=== PATIENT | female | born 1935 | race Native Hawaiian/Other Pacific Islander ===

== ENCOUNTER 2017-05-31 07:00 | Day surgery (SDC) | payer MEDICARE, OTHER ==
[2017-05-31] MEDS ORDERED: PROPARACAINE 0.5% OPHTH SOL 15 ML BTTL ONE (10:23)
[2017-05-31] MEDS ORDERED: TROP 1%/CYCLOPEN 1%/PHENYL 2% DROPS ONE (10:23)
[2017-05-31] MEDS ORDERED: PROPARACAINE 0.5% OPHTH SOL 15 ML BTTL LEFT_EYE ONE ×2 (10:57→11:18)
[2017-05-31] MEDS ORDERED: TROP 1%/CYCLOPEN 1%/PHENYL 2% DROPS OPHTH ONE (10:57)
[2017-05-31] MEDS ORDERED: TOBRAMYCIN SULF 0.3 % OPHT SOL 1 DROP LEFT_EYE ONE (10:57)
[2017-05-31] MEDS ORDERED: MIDAZOLAM INJ 2 MG/2 ML VIAL ONE (11:25)
[2017-05-31] MEDS ORDERED: LIDOCAINE 1% PF 2 ML AMP INJ ONE (11:43)
[2017-05-31] MEDS ORDERED: GENTAMICIN 0.3% OPHTH SOL 1 DROP LEFT_EYE ONE (11:44)
[2017-05-31] MEDS ORDERED: DEXAMETHASONE 0.1% OPHTH SOL 1 DROP LEFT_EYE ONE (11:44)
[2017-05-31] MEDS ORDERED: BRIMONIDINE 0.2% OPHTH DROPS LEFT_EYE ONE (11:45)
[2017-05-31 12:39] VITALS: BP 151/75; TEMP 97.4; O2SAT 97
== END 2017-05-31 12:45 | disposition home or self-care (01) ==
LOC: AMB 07:00
PROVIDERS: ATTEND Ophthalmology
DX: H25.12 Age-related nuclear cataract, left eye (principal); I10 Essential (primary) hypertension; Z88.2 Allergy status to sulfonamides; Z88.8 Allergy status to other drugs, medicaments and biological substances; Z79.82 Long term (current) use of aspirin; Z79.899 Other long term (current) drug therapy
CPT/HCPCS: 66984; J2250

== ENCOUNTER 2017-06-10 11:15 | Day surgery (SDC) | payer MEDICARE, OTHER ==
[2017-06-10] MEDS ORDERED: MIDAZOLAM INJ 2 MG/2 ML VIAL ONE (11:30)
[2017-06-10] MEDS ORDERED: PROPARACAINE 0.5% OPHTH SOL 15 ML BTTL RIGHT_EYE ONE ×2 (12:36→14:14)
[2017-06-10] MEDS ORDERED: TOBRAMYCIN SULF 0.3 % OPHT SOL 1 DROP RIGHT_EYE ONE ×3 (12:37→14:22)
[2017-06-10] MEDS ORDERED: TROP 1%/CYCLOPEN 1%/PHENYL 2% DROPS OPHTH ONE (12:38)
[2017-06-10] MEDS ORDERED: LIDOCAINE 1% PF 2 ML AMP INJ ONE (14:14)
[2017-06-10] MEDS ORDERED: DEXAMETHASONE 0.1% OPHTH SOL 1 DROP RIGHT_EYE ONE ×2 (14:14→14:22)
[2017-06-10] MEDS ORDERED: BRIMONIDINE 0.2% OPHTH DROPS RIGHT_EYE ONE ×2 (14:15→14:22)
[2017-06-10 15:21] VITALS: BP 137/69; TEMP 97.9; O2SAT 99
== END 2017-06-10 15:05 | disposition home or self-care (01) ==
LOC: AMB 11:15
PROVIDERS: ATTEND Ophthalmology
DX: H25.11 Age-related nuclear cataract, right eye (principal); I10 Essential (primary) hypertension; E78.5 Hyperlipidemia, unspecified; Z88.2 Allergy status to sulfonamides; Z88.8 Allergy status to other drugs, medicaments and biological substances; Z79.82 Long term (current) use of aspirin; Z79.899 Other long term (current) drug therapy
CPT/HCPCS: 66984; J2250